=== PATIENT | female | born 1970 | race Caucasian/White ===

== ENCOUNTER 2016-12-04 08:07 | Emergency (ER) | payer SELFPAY ==
[~2016-12-04] VITALS: Ht 170.2 cm; Wt 72.6 kg
[2016-12-04] MEDS ORDERED: METO-272 PO (08:24)
[2016-12-04] MEDS ORDERED: AMPH20TA2 PO (08:24)
[2016-12-04] MEDS ORDERED: CEFD300C3 PO (09:13)
--- NOTE | 2016-12-04 09:14 | ED EENT ---
History of Present Illness General Chief Complaint: Ear Problems Stated Complaint: LEFT EAR PAIN Nursing Triage Note: PT STATES SHE WENT TO [facility] YESTERDAY FOR LT EAR ACHE, THEY TOLD HER SHE HAD AN INFECTION BUT DID NOT PUT HER ON ABX. PT STATES IF FEELS LIKE PAIN IS SPREADING INTO HER HEAD AND NECK. Source: patient Exam Limitations: no limitations History of Present Illness Time seen by provider: 09:09 Initial Comments The patient is a 46-year-old white female who presents with a complaint of left ear pain. She reports that she has had relatively frequent earaches as an adult. This began yesterday and she attempted to get in to see her provider at [facility]. This was not possible and she was advised to see their immediate care. She was examined there and states that she was told that her tympanic membrane was quite red and her lymph node swollen but they were not going to give her an antibiotic as she was afebrile. Timing/Duration: yesterday Location: ear (L) Prearrival Treatment: no prearrival treatment Allergies and Home Medications Allergies Coded Allergies: Iodinated Contrast Media - Oral and (Verified Allergy, Intermediate, ) Home Medications Dextroamphetamine/Amphetamine 20 Mg Tablet, 10 MG PO DAILY, (Reported) Metoprolol Succinate 50 Mg Tab.er.24h, 50 MG PO BID, (Reported) Review of Systems Constitutional: see HPI Eyes: No Symptoms Reported Ears: Pain (left ear) Nose: no symptoms reported Mouth: no symptoms reported Throat: no symptoms reported Respiratory: no symptoms reported Cardiovascular: no symptoms reported Gastrointestinal: no symptoms reported Musculoskeletal: no symptoms reported Skin: no symptoms reported Neurological: No Symptoms Reported Hematologic/Lymphatic: No Symptoms Reported Immunological/Allergic: no symptoms reported Past Hqtjpob-Rvncwq-Aelnom Hx Patient Social History Alcohol Use: Rarely Uses Recreational Drug Use: No Smoking Status: Never a Smoker Recent Foreign Travel: No Contact w/Someone Who Travel: No Recent Infectious Disease Expo: No Recent Hopitalizations: No Seasonal Allergies Seasonal Allergies: Yes Surgeries HX Surgeries: Yes Surgeries: Appendectomy, Gallbladder, Hysterectomy Respiratory Hx Respiratory Disorders: No Cardiovascular Hx Cardiac Disorders: Yes Cardiac Disorders: Hypertension Neurological Hx Neurological Disorders: No 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 Genitourinary Hx Genitourinary Disorders: No Gastrointestinal Hx Gastrointestinal Disorders: No Musculoskeletal Hx Musculoskeletal Disorders: No Endocrine Hx Endocrine Disorders: No HEENT HX ENT Disorders: No Cancer Hx Cancer: No Psychosocial Hx Psychiatric Problems: No Integumentary HX Skin/Integumentary Disorder: No Blood Transfusions Hx Blood Disorders: No Physical Exam Vital Signs Vital Sign - Last 12Hours 12/04/16 08:16 Temp 96.0 Pulse 88 Resp 20 B/P (MAP) 168/113 Pulse Ox 98 O2 Delivery Room Air General Appearance: moderate distress Eyes: bilateral eye normal inspection Ears: left ear TM dull, left ear TM red, left ear erythema Mouth/Throat: normal mouth inspection, pharynx normal Neck: non-tender, full range of motion, supple, normal inspection Cardiovascular: normal peripheral pulses, regular rate, rhythm, no edema, no gallop, no JVD, no murmur Respiratory: chest non-tender, lungs clear, normal breath sounds, no respiratory distress, no accessory muscle use 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 Decision time for Depature: 09:12 Referrals: [facility] (PCP/Family) Primary Care Physician Patient Instructions: Ear Infections (Otitis Media) (DC) Add. Discharge Instructions: All discharge instructions reviewed with patient and/or family. Voiced understanding. Take Omnicef as directed. Begin tomorrow morning Scripts Cefdinir (Cefdinir) 300 Mg Capsule 300 MG PO ttwice a day, #14 CAP Prov: ROBERTO WILHELM MD 12/04/16 ROBERTO WILHELM MD Dec 04, 2016 09:14
[2016-12-04] MEDS ORDERED: LIDOCAINE 1% INJ 20 ML (XYLOCAINE) VIAL INJ ONE (09:15)
[2016-12-04] MEDS ORDERED: cefTRIAXone 1 GM (ROCEPHIN) VIAL IM ONE (09:15)
[2016-12-04 09:42] VITALS: BP 158/104
== END 2016-12-04 09:42 | disposition home or self-care (01) ==
LOC: EDUNIT# 08:07 → ER 08:10
DX: H66.92 Otitis media, unspecified, left ear (principal)
CPT/HCPCS: 96372; 99282

== ENCOUNTER 2017-08-27 17:21 | Emergency (ER) | payer SELFPAY ==
[~2017-08-27] VITALS: Ht 165.1 cm; Wt 72.6 kg
[~2017-08-27 17:21] MED LIST: AMPH20TA2 PO; CEFD300C3 PO; METO-370 PO
[2017-08-27] MEDS ORDERED: HYDR50TA3 PO (18:08)
--- NOTE | 2017-08-27 18:18 | ED Upper Extremity ---
General Chief Complaint: Upper Extremity Stated Complaint: L ARM PAIN/KNOT/BICEP Nursing Triage Note: c/o pain to left upper arm. Onset around 1730 yesterday. Reports "warmth" to left calf. Cough since last Wednesday-recently finished Rx of Amoxil. Nursing Sepsis Screen: No Definite Risk Source: patient Exam Limitations: no limitations History of Present Illness Time seen by provider: 18:04 Initial Comments Patient present to ER by private conveyance with a chief complaint that she has had a knot in her left antecubital fossa since last night. For the last week she 's been sick with some upper respiratory nasal congestion and cold symptoms. She was getting better but yesterday evening when she was leaning against a vehicle with her keys in her left hand talking to a friend with her left elbow flexed for a long time she says when she went to straighten her elbow. Quite a bit of pain in the anterior portion of her distal biceps insertion/antecubital fossa with a knot it was painful to palpation there. She has no history of deep vein clots. She does not smoke or use estrogen products. She has not have cancer or recent surgery or immobilization other than leaning against the vehicle for about an hour and a half. She's had no trauma to that arm. She has full range of motion and no pain on movement in the joints. No history of arthritis or gout. She also felt a sensation of warmth in her left calf yesterday while after this started happening. She is having no swelling in her legs and for walking shortness of breath, chest pain, redness or knots in her leg. Allergies and Home Medications Allergies Coded Allergies: Iodinated Contrast Media - Oral and (Verified Allergy, Intermediate, ) Home Medications Hydrochlorothiazide 50 Mg Tablet, 50 MG PO DAILY, (Reported) Constitutional: No chills, No fever EENTM: No hearing loss, No ear pain Respiratory: No cough, No short of breath Cardiovascular: No chest pain, No edema, No palpitations, No syncope, No vascular heart diseas Gastrointestinal: No constipation, No diarrhea, No nausea Genitourinary: No discharge, No dysuria : No Musculoskeletal: see HPI, No back pain, No neck pain Skin: No pruritus, No rash Psychiatric/Neurological: Denies Headache, Denies Numbness, Denies Paresthesia , Denies Tingling, Denies Weakness Past Cjssfko-Tvcyis-Hqbjvv Hx Patient Social History Alcohol Use: Denies Use Number of Drinks Today: AA Alcohol Beverage of Choice: Beer Recreational Drug Use: No Smoking Status: Never a Smoker Recent Foreign Travel: No Contact w/Someone Who Travel: No Recent Infectious Disease Expo: No Recent Hopitalizations: No Seasonal Allergies Seasonal Allergies: Yes Surgeries History of Surgeries: Yes Surgeries: Appendectomy, Gallbladder, Hysterectomy Respiratory History of Respiratory Disorde: No Cardiovascular History of Cardiac Disorders: Yes Cardiac Disorders: Hypertension Neurological History of Neurological Disord: No 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 Gastrointestinal History of Gastrointestinal Di: No Musculoskeletal History of Musculoskeletal Dis: No Endocrine History of Endocrine Disorders: No Cancer History of Cancer: No Psychosocial History of Psychiatric Problem: No Integumentary History of Skin or Integumenta: No Blood Transfusions History of Blood Disorders: No Physical Exam Vital Signs Vital Sign - Last 12Hours 08/27/17 17:41 Temp 98.1 Pulse 70 B/P (MAP) 167/110 (129) Pulse Ox 98 Capillary Refill : Less Than 3 Seconds General Appearance: WD/WN, no apparent distress HEENT: PERRL/EOMI, pharynx normal Neck: non-tender, full range of motion, supple, normal inspection Cardiovascular: normal peripheral pulses, regular rate, rhythm, no edema Respiratory: chest non-tender, lungs clear, normal breath sounds, no respiratory distress Shoulder: normal inspection, non-tender, no evidence of injury, normal ROM Elbow/Forearm: non-tender, no evidence of injury, normal ROM, Left, swelling ( 3 x 4 cm palpable, tender tumor under the skin consistent with a hematoma. No ecchymoses) Wrist: Yes normal inspection, Yes non-tender, Yes no evidence of injury, Yes normal ROM Hand: normal inspection, non-tender, no evidence of injury, normal ROM, Bilateral Reflexes: 2+ bicep (R), 2+ bicep (L) Neurologic/Tendon: normal sensation, normal motor functions, normal tendon functions, responds to pain, no evidence tendon injury Neurologic/Psychiatric: no motor/sensory deficits, alert, normal mood/affect, oriented x 3 Skin: normal color, warm/dry, other (leg shows no erythema, warmth, negative for Homans sign, swelling, tenderness, nodules, pain bilateral.) Progress/Results/Core Measures Results/Orders Lab Results Laboratory Tests Test 08/27/17 18:17 Range/Units White Blood Count 6.2 4.3-11.0 10^3/uL Red Blood Count 4.90 4.35-5.85 10^6/uL Hemoglobin 14.6 11.5-16.0 G/DL Hematocrit 42 35-52 % Mean Corpuscular Volume 87 80-99 FL Mean Corpuscular Hemoglobin 30 25-34 PG Mean Corpuscular Hemoglobin Concent 34 32-36 G/DL Red Cell Distribution Width 12.0 10.0-14.5 % Platelet Count 244 130-400 10^3/uL Mean Platelet Volume 9.4 7.4-10.4 FL Neutrophils (%) (Auto) 52 42-75 % Lymphocytes (%) (Auto) 36 12-44 % Monocytes (%) (Auto) 10 0-12 % Eosinophils (%) (Auto) 2 0-10 % Basophils (%) (Auto) 0 0-10 % Neutrophils # (Auto) 3.2 1.8-7.8 X 10^3 Lymphocytes # (Auto) 2.2 1.0-4.0 X 10^3 Monocytes # (Auto) 0.6 0.0-1.0 X 10^3 Eosinophils # (Auto) 0.1 0.0-0.3 10^3/uL Basophils # (Auto) 0.0 0.0-0.1 10^3/uL D-Dimer 0.30 0.00-0.49 UG/ML Sodium Level 142 135-145 MMOL/L Potassium Level 3.6 3.6-5.0 MMOL/L Chloride Level 105 98-107 MMOL/L Carbon Dioxide Level 29 21-32 MMOL/L Anion Gap 8 5-14 MMOL/L Blood Urea Nitrogen 22 H 7-18 MG/DL Creatinine 0.82 0.60-1.30 MG/DL Estimat Glomerular Filtration Rate > 60 BUN/Creatinine Ratio 27 Glucose Level 96 70-105 MG/DL Calcium Level 9.3 8.5-10.1 MG/DL Total Bilirubin 0.7 0.1-1.0 MG/DL Aspartate Amino Transf (AST/SGOT) 87 H 5-34 U/L Alanine Aminotransferase (ALT/SGPT) 52 0-55 U/L Alkaline Phosphatase 66 40-136 U/L Total Protein 7.4 6.4-8.2 GM/DL Albumin 4.0 3.2-4.5 GM/DL My Orders Orders - MUNA BARRERA Cbc With Automated Diff (08/27/17 18:10) Comprehensive Metabolic Panel (08/27/17 18:10) Fibrin Degradation Products (08/27/17 18:10) Vital Signs/I&O Vital Sign - Last 12Hours 08/27/17 17:41 Temp 98.1 Pulse 70 B/P (MAP) 167/110 (129) Pulse Ox 98 Blood Pressure Mean: 129 Progress Note : Time: 18:17 Progress Note Discussed the plan of observation versus workup and she would like to go ahead and workup so we'll start with some blood work to include a fibrin degradation product. If it's positive week and ultrasound to make sure if this is a clot in the vein versus hematoma versus other her left antecubital space tumor. Her legs are symmetric circumference and without any evidence of a DVT nor does she have any risk factors for DVT. Departure Impression Impression: Primary Impression: Hematoma Disposition: 01 HOME, SELF-CARE Condition: Stable Departure-Patient Inst. Decision time for Depature: 19:27 Referrals: [facility]/SHAYLA (PCP) Primary Care Physician JACOB OSULLIVAN (Family) Primary Care Physician Patient Instructions: HEMATOMA Add. Discharge Instructions: Ice it for 20 minutes every 4-6 hours as needed for the first couple days and then just use heating pads, Motrin 800 mg every 8 hours and/or Tylenol 1000 g every 8 hours. If it's not resolved by 2-3 weeks follow-up to primary care physician. If it is spreading or getting worse follow-up sooner with her primary care physician. Return to the ER to begin to have chest pain, nausea or shortness of breath. All discharge instructions reviewed with patient and/or family. Voiced understanding. Copy Copies To 1: BRANDIE HARRISON TITUS J Aug 27, 2017 18:18
[2017-08-27 18:27] LABS: BASOPHILS % (AUTO) 0 % (0-10); EOSINOPHILS # (AUTO) 0.1 10^3/uL (0.0-0.3); EOSINOPHILS % (AUTO) 2 % (0-10); HEMATOCRIT 42 % (35-52); HEMOGLOBIN 14.6 G/DL (11.5-16.0); LYMPHOCYTES # (AUTO) 2.2 X 10^3 (1.0-4.0); LYMPHOCYTES % (AUTO) 36 % (12-44); MEAN CORPUSCULAR HEMOGLOBIN 30 PG (25-34); MEAN CORPUSCULAR HGB CONC 34 G/DL (32-36); MEAN CORPUSCULAR VOLUME 87 FL (80-99); MEAN PLATELET VOLUME 9.4 FL (7.4-10.4); MONOCYTES # (AUTO) 0.6 X 10^3 (0.0-1.0); MONOCYTES % (AUTO) 10 % (0-12); NEUTROPHILS # (AUTO) 3.2 X 10^3 (1.8-7.8); NEUTROPHILS % (AUTO) 52 % (42-75); PLATELET COUNT 244 10^3/uL (130-400); WHITE BLOOD COUNT 6.2 10^3/uL (4.3-11.0)
[2017-08-27 18:46] LABS: ALANINE AMINOTRANSFERASE 52 U/L (0-55); ALKALINE PHOSPHATASE 66 U/L (40-136); BILIRUBIN,TOTAL 0.7 MG/DL (0.1-1.0); BUN/CREATININE RATIO 27; CALCIUM 9.3 MG/DL (8.5-10.1); CARBON DIOXIDE 29 MMOL/L (21-32); CHLORIDE 105 MMOL/L (98-107); CREATININE SERUM 0.82 MG/DL (0.60-1.30); GFR ESTIMATED > 60; GLUCOSE 96 MG/DL (70-105); POTASSIUM 3.6 MMOL/L (3.6-5.0); SODIUM 142 MMOL/L (135-145); TOTAL PROTEIN 7.4 GM/DL (6.4-8.2)
[2017-08-27 19:28] VITALS: BP 0/0
== END 2017-08-27 19:30 | disposition home or self-care (01) ==
LOC: EDUNIT# 17:21 → ER 17:23
DX: S40.022A Contusion of left upper arm, initial encounter (principal); I10 Essential (primary) hypertension; Z90.49 Acquired absence of other specified parts of digestive tract; Z90.710 Acquired absence of both cervix and uterus; X50.0XXA Overexertion from strenuous movement or load, initial encounter
CPT/HCPCS: 36415; 80053; 85025; 85379; 99283

== ENCOUNTER → 2017-12-07 | Outpatient (CLI) | payer OTHER ==
[~2017-12-07] MED LIST changes: +HYDR50TA3 PO
== END ==
LOC: RAD 10:27
PROVIDERS: ATTEND Nurse Practitioner Community Health
DX: Z53.8 Procedure and treatment not carried out for other reasons (principal); N63.0 Unspecified lump in unspecified breast; Z80.3 Family history of malignant neoplasm of breast

== ENCOUNTER → 2017-12-23 | Outpatient (CLI) | payer OTHER ==
--- NOTE | 2017-12-23 09:50 | Diagnostic Imaging Report ---
INDICATION: Pain in the bilateral breasts and bilateral axillae. COMPARISON: 03/01/2014. EXAMINATION: 3D digital tomography bilateral. TECHNIQUE: Bilateral 3D digital tomographic views were obtained with [employer] and reviewed on a [employer] workstation. In addition, CAD (computer aided detection) was utilized. FINDINGS: Scattered fibroglandular densities are noted bilaterally. No mass or malignant appearing microcalcifications are seen. The axillae are unremarkable. IMPRESSION: No mammographic features suspicious for malignancy are identified. Even so, further evaluation of the areas of pain within both breasts with ultrasound is recommended. ACR BI-RADS Category 0: Incomplete. (Needs additional imaging evaluation). Result letter will be mailed to the patient. Note: At least 10% of breast cancer is not imaged by mammography. Dictated by: Dictated on workstation # [id number]
--- NOTE | 2017-12-23 10:21 | Diagnostic Imaging Report ---
INDICATION: Bilateral breast pain and axillary pain. COMPARISON: Correlation is made with the diagnostic mammogram from earlier this same day. FINDINGS: Sonographic interrogation of all quadrants of the bilateral breasts as well as the axilla bilaterally was performed. No sonographic abnormality is seen. No solid or cystic mass is detected. IMPRESSION: No sonographic abnormality is detected. ACR BI-RADS Category 1: Negative. Dictated by: Dictated on workstation # [id number]
== END ==
LOC: RAD 07:55
PROVIDERS: ATTEND Nurse Practitioner Community Health
DX: N64.4 Mastodynia (principal); R59.9 Enlarged lymph nodes, unspecified; M79.621 Pain in right upper arm; M79.622 Pain in left upper arm
CPT/HCPCS: 77066

== ENCOUNTER 2018-06-12 18:39 | Emergency (ER) | payer SELFPAY ==
[~2018-06-12] VITALS: Ht 165.1 cm; Wt 72.6 kg
[2018-06-12] MEDS ORDERED: DEXT10TA9 PO (18:54)
[2018-06-12] MEDS ORDERED: HYDROcodone/APAP 7.5 MG/325 MG (LORTAB, LORCET PLUS) TABLET PO ONE (19:00)
[2018-06-12] MEDS ORDERED: KETOROLAC 60 MG/2 ML VIAL IM ONE (19:00)
[2018-06-12] MEDS ORDERED: ORPHENADRINE 60 MG/2 ML (NORFLEX) AMP IM ONE (19:00)
--- NOTE | 2018-06-12 19:45 | Diagnostic Imaging Report ---
PROCEDURE: CT lumbar spine without contrast. TECHNIQUE: Multiple contiguous axial images were obtained through the lumbar spine without the use of intravenous contrast. Sagittal and coronal reformations were then performed. INDICATION: Jumping on trampoline. [place] a pop in the back. Pain. There is normal height and alignment of the lumbar vertebral bodies. Disc spaces are well-maintained. No disc herniation or bony stenosis is seen at any level. There is no fracture or other acute abnormality. IMPRESSION: No significant abnormality is seen. Dictated by: Dictated on workstation # [id number]
[2018-06-12] MEDS ORDERED: ACHD5005 PO (20:02)
[2018-06-12] MEDS ORDERED: CYCL10TA9 PO (20:02)
--- NOTE | 2018-06-12 20:02 | ED Back Pain ---
General Chief Complaint: Back Problems Stated Complaint: HURT BACK JUMPING ON TRAMPOLINE Nursing Triage Note: lower back pain after jumping on trampoline Nursing Sepsis Screen: No Definite Risk Source of Information: Patient Exam Limitations: No Limitations History of Present Illness Date Seen by Provider: Jun 12, 2018 Time Seen by Provider: 18:50 Initial Comments Patient is a 47-year-old female who presents to emergency room POV with complaints of lumbar back pain that started after jumping on trampoline at 1400 today. She reports a numbness and tingling to her legs bilaterally. Denies saddle paresthesia or loss of bowel or bladder. Describes pain as coming in waves. Location: Lumbar Spine Timing/Duration: 4-6 Hours Severity: Moderate Pain/Injury Location: Back Radiation: Buttocks, Upper Legs Method of Injury: Other (jumping on trampoline) Modifying Factors: Worse With Movement Associated Symptoms: muscle spasms, numbness in legs/feet, tingling in legs/ feet; No loss of bladder control, No loss of bowel control Allergies and Home Medications Allergies Coded Allergies: Iodinated Contrast Media - Oral and (Verified Allergy, Intermediate, ) Home Medications Cyclobenzaprine HCl 10 Mg Tablet, 10 MG PO TID Prescribed by: VITO QUINTANA on 06/12/182001 Hydrochlorothiazide 50 Mg Tablet, 50 MG PO DAILY, (Reported) Hydrocodone Bit/Acetaminophen 1 Tab Tab, 1 EACH PO Q4-6HR PRN for PAIN-MODERATE Prescribed by: VITO QUINTANA on 06/12/182001 Patient Home Medication List Home Medication List Reviewed: Yes Review of Systems Constitutional: see HPI; No chills, No fever Musculoskeletal: see HPI, back pain, muscle cramps Past Gtoasip-Wqfdzs-Tdfjpb Hx Past Med/Social Hx: Reviewed Nursing Past Med/Soc Hx Patient Social History Alcohol Use: Denies Use Number of Drinks Today: AA Alcohol Beverage of Choice: Beer Recreational Drug Use: No Smoking Status: Never a Smoker Recent Foreign Travel: No Contact w/Someone Who Travel: No Recent Infectious Disease Expo: No Recent Hopitalizations: No Immunizations Up To Date Tetanus Booster (TDap): Unknown Seasonal Allergies Seasonal Allergies: Yes Past Medical History Surgeries: Yes (lithotripsy) Appendectomy, Section, Gallbladder, Hysterectomy Respiratory: No Cardiac: Yes Hypertension 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 oz. [id number]; BMI Method:Estimated General Appearance: No Apparent Distress, WD/WN Neck: Full Range of Motion, Normal Inspection, Non Tender, Supple Cardiovascular: Regular Rate, Rhythm, No Edema, No Gallop, No JVD, No Murmur, Normal Peripheral Pulses Respiratory: Chest Non Tender, Lungs Clear, Normal Breath Sounds, No Accessory Muscle Use, No Respiratory Distress, Accessory Muscle Use Back: Normal Inspection, No CVA Tenderness, Muscle Spasm, Vertebral Tenderness (lumbar verterbral tenderness) Extremity: Normal Capillary Refill Neurologic/Psychiatric: Alert, Oriented x3, Normal Mood/Affect Skin: Normal Color, Warm/Dry Progress/Results/Core Measures Results/Orders My Orders Orders - VITO QUINTANA Ketorolac Injection (Toradol Injection) (06/12/18 19:00) Orphenadrine Injection (Norflex Injectio (06/12/18 19:00) Hydrocodone/Apap 7.5/325 Tab (Lortab 7. (06/12/18 19:00) Ct Lumbar Spine Wo (06/12/18 19:21) Rx-Hydrocodone/Apap 5-325 Mg (Rx-Vicodin (06/12/18 20:15) Medications Given in ED Current Medications Medications Dose Ordered Sig/Edwin Route Start Time Stop Time Status Last Admin Dose Admin Acetaminophen/ Hydrocodone Bitart 1 ea ONCE ONCE PO 06/12/18 19:00 06/12/18 19:01 DC 06/12/18 18:58 1 EA Acetaminophen/ Hydrocodone Bitart 1 ea Q4H PRN PO 06/12/18 20:15 06/12/18 20:17 DC 06/12/18 20:12 1 EA Ketorolac Tromethamine 60 mg ONCE ONCE IM 06/12/18 19:00 06/12/18 19:01 DC 06/12/18 18:59 60 MG Orphenadrine Citrate 60 mg ONCE ONCE IM 06/12/18 19:00 06/12/18 19:01 DC 06/12/18 18:59 60 MG Vital Signs/I&O 06/12/18 06/12/18 18:50 20:18 Temp 98.2 98.2 Pulse 89 84 Resp 24 18 B/P (MAP) 176/110 (132) 178/106 (130) Pulse Ox 95 95 O2 Delivery Room Air Room Air Blood Pressure Mean: 132 Progress Progress Note : Time: 19:59 Progress Note I have seen and evaluated the patient. I have informed her of normal imaging studies. She agrees with plan of care, plans for discharge, return precautions were given. Voices no concerns or questions. Diagnostic Imaging Diagonstic Imaging: CT Plain Films/CT/US/NM/MRI: other (L- spine) Comments NAME: NICOHLAS MARTINEZ [facility] REC#: [id number] PHYSICIAN: VITO QUINTANA CC: VITO QUINTANA; SUNIL CABRALES MD Page 1 of 1 RADIOLOGY REPORT VIA [place], [place] CC: VITO QUINTANA; SUNIL CABRALES MD Page 1 of 1 RADIOLOGY REPORT NAME: MARTINEZNICHOLAS Ayaan [facility] REC#: [id number] PT STATUS: REG ER : 1970 PHYSICIAN: VITO QUINTANA ADMIT DATE: 06/12/18/ER Signed Date of Exam: 06/12/18 CT LUMBAR SPINE WO PROCEDURE: CT lumbar spine without contrast. TECHNIQUE: Multiple contiguous axial images were obtained through the lumbar spine without the use of intravenous contrast. Sagittal and coronal reformations were then performed. INDICATION: Jumping on trampoline. [place] a pop in the back. Pain. There is normal height and alignment of the lumbar vertebral bodies. Disc spaces are well-maintained. No disc herniation or bony stenosis is seen at any level. There is no fracture or other acute abnormality. IMPRESSION: No significant abnormality is seen. Dictated by: Dictated on workstation # [id number] Dict: 06/12/181940 Trans: 06/12/181947 Interpreted by: SUNIL CABRALES MD Electronically signed by: SUNIL CABRALES MD 06/12/181947 Reviewed: Reviewed by Me Departure Impression Primary Impression: Back pain Qualified Codes: M54.5 - Low back pain Disposition: 01 HOME, SELF-CARE Condition: Stable/Unchanged Departure-Patient Inst. Decision time for Depature: 19:59 Referrals: [facility] (PCP/Family) Primary Care Physician Patient Instructions: Low Back Pain (DC), Lumbar Muscle Strain (DC) Add. Discharge Instructions: Take medications as directed. Use ice to the sore areas at 20 minute intervals for the first 24 hours and then you may add heat as needed. Tylenol and ibuprofen as directed by the bottle. For pain unrelieved by Tylenol and ibuprofen you may use the pain pills as prescribed. Follow-up with Coleman Marroquin at [facility] within 1 week for recheck. Return back to the emergency room for any worsening symptoms, numbness and tingling to the genital areas as we discussed, loss of bowel or bladder, or any other concerns as needed. All discharge instructions reviewed with patient and/or family. Voiced understanding. Scripts Hydrocodone Bit/Acetaminophen (Hydrocodone/Acetaminophen 5/325mg Tablet) 1 Tab Tab 1 EACH PO Q4-6HR PRN for PAIN-MODERATE MDD 10, #10 TAB Prov: VITO QUINTANA 06/12/18 Cyclobenzaprine HCl (Cyclobenzaprine HCl) 10 Mg Tablet 10 MG PO TID, #14 TAB Prov: VITO QUINTANA 06/12/18 VITO QUINTANA Jun 12, 2018 20:02
[2018-06-12] MEDS ORDERED: RX-HYDROCODONE/APAP 5/325 MG #4 TAB PK PO PRN (20:15)
[2018-06-12 20:18] VITALS: BP 178/106
== END 2018-06-12 20:17 | disposition home or self-care (01) ==
LOC: EDUNIT# 18:39 → ER 18:42
DX: M54.6 Pain in thoracic spine (principal); I10 Essential (primary) hypertension; F90.9 Attention-deficit hyperactivity disorder, unspecified type; F32.9 Major depressive disorder, single episode, unspecified; Z91.041 Radiographic dye allergy status; Z98.890 Other specified postprocedural states; Z90.710 Acquired absence of both cervix and uterus; Z90.89 Acquired absence of other organs; X50.0XXA Overexertion from strenuous movement or load, initial encounter; Y30.XXXA Falling, jumping or pushed from a high place, undetermined intent, initial encounter
CPT/HCPCS: 72131; 96372

== ENCOUNTER → 2022-01-19 | Outpatient (CLI) | payer BC ==
[~2022-01-19] MED LIST changes: +ACHD5005 PO; +CYCL10TA25 PO; +DEXT10TA9 PO; -HYDR50TA3 PO; +HYDR50TA6 PO; -METO-370 PO; +METO50TA7 PO
--- NOTE | 2022-01-19 13:18 | Diagnostic Imaging Report ---
INDICATION: Dyspnea on exertion PA and lateral chest Heart size and pulmonary vascularity are normal. Lungs are clear. There are no effusions or pneumothoraces. IMPRESSION: No acute abnormalities in the chest. Dictated by: Dictated on workstation # [id number]
== END ==
LOC: RAD 12:43
PROVIDERS: ATTEND Internal Medicine Cardiovascular Disease
DX: R06.09 Other forms of dyspnea (principal)
CPT/HCPCS: 71046